=== PATIENT | male | born 1965 | race Caucasian/White ===

== ENCOUNTER → 2019-05-16 09:51 | Outpatient (BNVA) | payer MEDICARE, SELFPAY | PROVIDERS: Family Provider Nurse Practitioner Family; PCP Nurse Practitioner Family; Visit Provider Nurse Practitioner Psychiatric/Mental Health | DX: F33.2 Major depressive disorder, recurrent severe without psychotic features (principal); F41.1 Generalized anxiety disorder; F17.210 Nicotine dependence, cigarettes, uncomplicated | CPT/HCPCS: 99214 ==

== ENCOUNTER → 2019-05-18 14:03 | Outpatient (BNVA) | payer MEDICARE, SELFPAY | PROVIDERS: Family Provider Nurse Practitioner Family; PCP Nurse Practitioner Family; Visit Provider Nurse Practitioner | DX: M54.5 Low back pain (principal); F17.210 Nicotine dependence, cigarettes, uncomplicated; Z79.891 Long term (current) use of opiate analgesic | CPT/HCPCS: 99213 ==

== ENCOUNTER 2019-06-13 11:28 | Emergency (ER) | payer MEDICARE, SELFPAY ==
[2019-06-13 11:29] VITALS: BP 128/93; PULSE 88; RESP 18; O2SAT 96; BMI 25.5
--- NOTE | 2019-06-13 11:29 | ED_ITS ---
Entered by Anushka Franklin, acting as scribe for Ciara Call HPI - Extremity Injury (Lower) General: Chief Complaint: Extremity Injury, Lower Stated Complaint: Lt toe pain Time Seen by Provider: 06/13/19 11:29 Source: patient and RN notes reviewed Mode of arrival: ambulatory Limitations: no limitations History of Present Illness: HPI Narrative: 54 yo male presents to ED with complaints of an injury to his L second toe. 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 He said the grinder set up operator universal is approximately 20 pounds and it fell about 4 feet. MD complaint: foot injury (L second toe) Onset (ago): day(s) (1) Injury: Left: toes (second toe) Type of Injury: blunt Place: home Severity: severe Relieving factors: nothing Exacerbating factors: weight bearing, movement and palpation Context: direct blow Associated symptoms: Reports swelling Other symptoms: none Treatments prior to arrival: NSAIDS Review of Systems General: Reports: other (negative unless marked) Const: Denies: fever, chills, body aches, fatigue, malaise or diaphoresis Eyes: Denies: change in vision or blurry vision ENMT: Denies: throat pain, painful swallowing, hoarseness, ear pain, ear discharge, Change in hearing or nasal discharge Card: Denies: chest pain, palpitations, irregular heart rhythm, syncope, pre- syncope, shortness of breath on exertion or shortness of breath when lying down Resp: Denies: shortness of breath, productive cough, non-productive cough, wheezing, coughing up blood or chest congestion GI: Denies: abdominal pain, nausea, vomiting, vomiting blood, coffee grounds in vomit, diarrhea, constipation, cramping, blood in stool or black tarry stool : Denies: flank pain, difficulty urinating, painful urination, urinary frequency, urinary urgency, decreased urine ouput, urinary incontinence or blood in urine Musc: Denies: neck pain, back pain, joint warmth or joint stiffness Skin/Breast: Denies: rash, skin tenderness or yellow skin Neuro: Denies: headache, numbness in extremities, weakness in extremities, changes in sensation, lack of coordination, difficulty walking, dizziness, vertigo or confusion Endo: Denies: excessive thirst, tired all the time, cold intolerance, excessive sweating, flushing or hot flashes Deejay/Lymph: Denies: easy bruising, easy bleeding, petechiae or enlarged lymph nodes All/Imm: Denies: hives, throat swelling, tongue swelling, facial swelling or acute wheezing PFSH ED PFSH: Surgical History (Updated 05/18/19 @ 15:10 by MICHAEL Hopson) Hx of knee surgery RT KNEE SURGERY ? Arthroscopy Right knee Social History (Updated 06/13/19 @ 10:31 by SILVINO Guardado) Smoking and tobacco status: current every day smoker cigarettes Packs smoked per day: 0.5 Quit status (tobacco): has tried quititng Second hand smoke exposure: No Smoking risk assessment/counseling performed?: Yes Alcohol intake: never Desire information about alcohol rehabilitation?: No Counseling given: No History of recent travel: No Physical Exam Const: COMMON NORMALS: no apparent distress, oriented x3, no limitations, healthy appearing and well nourished EXAM LIMITATIONS: no altered mental status GENERAL APPEARANCE: cooperative, well kempt and well developed ORIENTATION/CONSCIOUSNESS: Yes awake HENMT: COMMON NORMALS: normocephalic, head/scalp atraumatic, hearing grossly normal bilaterally, external ears normal, EAC's normal, external nose normal and moist oral mucous membranes HEAD & SCALP: normal to inspection, normocephalic and atraumatic FACE & SINUS: normal facial exam and face symmetric NOSE: external nose normal and nares normal EXTERNAL EAR: Yes external ears normal EXTERNAL AUDITORY CANAL: EAC's normal MOUTH: oral and palatal mucosa normal and tongue normal Eye: COMMON NORMALS: PERRL, EOMs intact bilaterally, conjunctivae normal and no scleral icterus GENERAL EYE: normal appearance of both eyes and normal light reflex CONJUNCTIVA: Yes conjunctivae normal SCLERA: sclerae normal CORNEA: Yes corneas normal PUPIL: Yes PERRL DIRECT OPHTHALMOSCOPY: Yes normal light reflex Neck/C-Spine: COMMON NORMALS: full ROM, no lymphadenopathy, supple, no meningeal signs and no JVD GENERAL: Yes normal visual inspection and Yes trachea midline CERVICAL SPINE: Yes cervical ROM normal Chest: COMMONS NORMALS: inspection of chest normal and palpation of chest normal Resp: COMMON NORMALS: normal respiratory effort, no retractions, no use of accessory muscles and clear to auscultation bilaterally EFFORT & INSPECTION: Yes able to speak in complete sentences AUSCULTATION: clear to auscultation bilaterally Cardio: COMMON NORMALS: no JVD, regular rate, regular rhythm, S1 normal heart sound, S2 normal heart sound, no gallops, no clicks, no murmurs and no rub JUGULAR VENOUS DISTENTION: no JVD RATE: regular rate RHYTHM: regular rhythm HEART SOUNDS: S1 normal and S2 normal GI: COMMON NORMALS: soft to palpation, non-tender, no hepatosplenomegaly and no masses INSPECTION: Yes normal to inspection PALPATION: Yes soft and Yes no hepatosplenomegaly : COMMON NORMALS: Yes no CVA tenderness BLADDER/KIDNEY EXAM: Yes no CVA tenderness Back/Pelvis: COMMON NORMALS: no CVA tenderness, thoracic and lumbar spine normal to inspection, no thoracic nor lumbar tenderness and thoraco-lumbar ROM normal Extremity: COMMON NORMALS: normal to inspection, full ROM, normal capillary refill, no joint enlargement, no clubbing, cyanosis or edema and no calf tenderness OTHER: Right second toe with contusion noted. Neurovascular intact distal. Neuro: COMMON NORMALS: oriented x3, CN's II-XII intact bilaterally, moves all extremities, no focal motor deficits and no sensory deficits noted MENINGEAL SIGNS: Yes no meningeal signs Psych: COMMON NORMALS: mental status grossly normal, thought process normal, cooperative, affect normal, speech normal and activity/motor behavior normal APPEARANCE: Yes well kempt SPEECH: Yes normal speech THOUGHT PROCESS: normal thought process Skin: COMMON NORMALS: no rashes or lesions noted, skin turgor normal, no jaundice, no petechiae and no mottling GENERAL SKIN EXAM: no rashes or lesions noted and turgor normal Course Vital Signs: Vital signs: Vital Signs Pulse Rate 88 06/13/19 11:29 Respiratory Rate 18 06/13/19 11:29 Blood Pressure 128/93 06/13/19 11:29 Pulse Oximetry 96 06/13/19 11:29 MDM - Extremity Injury (Lower) MDM Narrative: Medical decision making narrative: Patient has no evidence of fracture on his x-ray. I will go and discharge him home with expectant care. He agrees to return if his symptoms worsen. I have notified him we will call him if radiology over reads his x-rays will have him return if necessary. Imaging Data^: Xray Ortho: My impression: Right foot -negative for fracture or dislocation. Discharge Plan Discharge Patient Disposition: Home, Self-Care Clinical Impression: Contusion of toe of right foot Qualifiers: Encounter type: initial encounter Toe: lesser toe Damage to nail status: without damage Qualified Code(s): S90.121A - Contusion of right lesser toe(s) without damage to nail, initial encounter Condition: Stable Prescriptions: No Action tizanidine 4 mg tablet 4 mg PO .one-half Q 6-8 hours PRN (Reason: Muscle Spasm) RF: 0 lisinopril 5 mg tablet 5 mg PO DAILY RF: 0 hydrocodone-acetaminophen 7.5-325 mg tablet 1 tab PO Q8H PRN (Reason: pain) 30 Days Qty: 90 RF: 0 hydrocodone-acetaminophen 7.5-325 mg tablet 1 tab PO TID 30 Days Qty: 90 RF: 0 buspirone 10 mg tablet 10 mg PO TID Qty: 90 RF: 3 trazodone 150 mg tablet 150 mg PO .bedtime PRN (Reason: sleep) Qty: 30 RF: 3 pramipexole [Mirapex] 0.125 mg tablet 0.375 mg PO DAILY 30 Days Qty: 90 RF: 2 paroxetine HCl [Paxil] 40 mg tablet 40 mg PO QAM 30 Days Qty: 30 RF: 5 hydroxyzine HCl 50 mg tablet 50 mg PO BID PRN (Reason: anxiety) Qty: 60 RF: 4 Discharge Orders: Discharge Order (Routine); Ordered 06/13/19 Ordered By: Ciara Call Referrals: Valeria Reynoso, DROP HAMMER SET UP OPERATOR [Primary Care Provider] - 1-3 days Discharge Diet: Advance as tolerated Discharge Activity: Increase activity as tolerated Patient Instructions: Contusion in Adults (ED) Activity Restrictions/Additional Instructions: Please return to the ER immediately for any of the signs or symptoms listed on your discharge instruction sheets, worsening/changing of your symptoms, you are not getting better as quickly as expected, or for ANY other cause or concerns. Coding Level of Care Code ED Oil And Gas Drafter for Dung Fwd The documentation recorded by the Noemi vargas Valerie R accurately reflects the service I personally performed and the decisions made by Jakub roach Eli N Jun 13, 2019 11:28
--- NOTE | 2019-06-13 11:31 | XR_ITS ---
WS: [id number] Right foot, 3 views, 06/13/2019 Clinical Data: INJURY/PAIN Comparison: None. Findings: No fractures or dislocations are seen. No bone destruction or erosion is noted. The joint spaces and soft tissues are normal. XR/XR foot RT min 3V* [id number] Impression: Negative right foot.
[2019-06-13 12:16] VITALS: PULSE 73; RESP 16; O2SAT 96
== END 2019-06-13 12:18 | disposition home or self-care (01) ==
PROVIDERS: Emergency Provider Emergency Medicine; Family Provider Nurse Practitioner Family; PCP Nurse Practitioner Family
DX: S90.121A Contusion of right lesser toe(s) without damage to nail, initial encounter (principal); F17.210 Nicotine dependence, cigarettes, uncomplicated; W22.8XXA Striking against or struck by other objects, initial encounter
CPT/HCPCS: 12345; 73630; 99281; 99282

== ENCOUNTER → 2019-06-27 07:39 | Outpatient (BNVA) | payer MEDICARE, SELFPAY | PROVIDERS: Family Provider Nurse Practitioner Family; PCP Nurse Practitioner Family; Visit Provider Nurse Practitioner Psychiatric/Mental Health | DX: F31.81 Bipolar II disorder (principal); F41.1 Generalized anxiety disorder; F17.210 Nicotine dependence, cigarettes, uncomplicated; F43.12 Post-traumatic stress disorder, chronic | CPT/HCPCS: 99214 ==

== ENCOUNTER → 2019-07-18 07:38 | Outpatient (BNVA) | payer MEDICARE, SELFPAY | PROVIDERS: Family Provider Nurse Practitioner Family; PCP Nurse Practitioner Family; Visit Provider Nurse Practitioner Psychiatric/Mental Health | DX: F33.2 Major depressive disorder, recurrent severe without psychotic features (principal); F41.1 Generalized anxiety disorder; F17.210 Nicotine dependence, cigarettes, uncomplicated | CPT/HCPCS: 99214 ==

== ENCOUNTER → 2019-08-03 12:02 | Outpatient (BNVA) | payer MEDICARE, SELFPAY | PROVIDERS: Family Provider Nurse Practitioner Family; Visit Provider Nurse Practitioner Family | DX: M54.5 Low back pain (principal); E78.2 Mixed hyperlipidemia; I10 Essential (primary) hypertension; R53.83 Other fatigue; Z79.899 Other long term (current) drug therapy | CPT/HCPCS: 36415; 80053; 80061; 81001; 82306; 83036; 84443; 85025 ==

== ENCOUNTER → 2019-09-05 09:11 | Outpatient (BNVA) | payer MEDICARE, SELFPAY | PROVIDERS: Family Provider Nurse Practitioner Family; Visit Provider Podiatrist Foot & Ankle Surgery | DX: S99.911A Unspecified injury of right ankle, initial encounter (principal); M77.31 Calcaneal spur, right foot; X58.XXXA Exposure to other specified factors, initial encounter | CPT/HCPCS: 73600; 73610 ==

== ENCOUNTER 2019-09-05 13:41 | Outpatient (CLI) | payer MEDICARE, SELFPAY | END 2019-09-05 13:42 | disposition home or self-care (01) | LOC: SPT 13:42 | PROVIDERS: Family Provider Nurse Practitioner Family; Visit Provider Podiatrist Foot & Ankle Surgery | DX: Z46.89 Encounter for fitting and adjustment of other specified devices (principal); S82.891D Other fracture of right lower leg, subsequent encounter for closed fracture with routine healing; X58.XXXD Exposure to other specified factors, subsequent encounter; S99.911A Unspecified injury of right ankle, initial encounter; M77.31 Calcaneal spur, right foot; X58.XXXA Exposure to other specified factors, initial encounter | CPT/HCPCS: 73600; 73610; 97760; L4361 ==

== ENCOUNTER → 2019-09-12 07:34 | Outpatient (BNVA) | payer MEDICARE, SELFPAY | PROVIDERS: Family Provider Nurse Practitioner Family; Visit Provider Nurse Practitioner Psychiatric/Mental Health | DX: F33.2 Major depressive disorder, recurrent severe without psychotic features (principal); F41.1 Generalized anxiety disorder; F17.210 Nicotine dependence, cigarettes, uncomplicated | CPT/HCPCS: 99214 ==

== ENCOUNTER → 2019-09-25 15:53 | Outpatient (BNVA) | payer MEDICARE, SELFPAY | PROVIDERS: Family Provider Nurse Practitioner Family; Visit Provider Podiatrist Foot & Ankle Surgery | DX: S82.891A Other fracture of right lower leg, initial encounter for closed fracture (principal); W03.XXXA Other fall on same level due to collision with another person, initial encounter | CPT/HCPCS: 73610; 73630 ==

== ENCOUNTER 2019-09-25 16:31 | Outpatient (CLI) | payer MEDICARE, SELFPAY | END 2019-09-25 16:32 | disposition home or self-care (01) | LOC: SPT 16:31 | PROVIDERS: Family Provider Nurse Practitioner Family; Visit Provider Podiatrist Foot & Ankle Surgery | DX: Z46.89 Encounter for fitting and adjustment of other specified devices (principal); S82.891D Other fracture of right lower leg, subsequent encounter for closed fracture with routine healing; X58.XXXD Exposure to other specified factors, subsequent encounter | CPT/HCPCS: 73610; 97760; L1902 ==

== ENCOUNTER → 2019-10-15 07:23 | Outpatient (BNVA) | payer MEDICARE, SELFPAY | PROVIDERS: Family Provider Nurse Practitioner Family; Visit Provider Nurse Practitioner Psychiatric/Mental Health | DX: F33.2 Major depressive disorder, recurrent severe without psychotic features (principal); F41.1 Generalized anxiety disorder; F17.210 Nicotine dependence, cigarettes, uncomplicated; F43.12 Post-traumatic stress disorder, chronic | CPT/HCPCS: 99214 ==

== ENCOUNTER → 2019-11-06 07:41 | Outpatient (BNVA) | payer MEDICARE, SELFPAY | PROVIDERS: Family Provider Nurse Practitioner Family; Visit Provider Nurse Practitioner Psychiatric/Mental Health | DX: F33.2 Major depressive disorder, recurrent severe without psychotic features (principal); F41.1 Generalized anxiety disorder; F17.210 Nicotine dependence, cigarettes, uncomplicated | CPT/HCPCS: 99214 ==

== ENCOUNTER → 2019-12-05 07:53 | Outpatient (BNVA) | payer MEDICARE, SELFPAY | PROVIDERS: Family Provider Nurse Practitioner Family; Visit Provider Nurse Practitioner Psychiatric/Mental Health | DX: F33.2 Major depressive disorder, recurrent severe without psychotic features (principal); F41.1 Generalized anxiety disorder; F17.210 Nicotine dependence, cigarettes, uncomplicated | CPT/HCPCS: 99214 ==

== ENCOUNTER → 2020-05-26 12:16 | Outpatient (BNVA) | payer MEDICARE, SELFPAY | PROVIDERS: Family Provider Nurse Practitioner Family; Visit Provider Nurse Practitioner Family | DX: R07.9 Chest pain, unspecified (principal); R06.02 Shortness of breath; K21.9 Gastro-esophageal reflux disease without esophagitis | CPT/HCPCS: 71046 ==

== ENCOUNTER → 2020-07-22 11:07 | Outpatient (BNVA) | payer MEDICARE, SELFPAY | PROVIDERS: Family Provider Nurse Practitioner Family; PCP Nurse Practitioner Family; Visit Provider Nurse Practitioner Family | DX: I10 Essential (primary) hypertension (principal); R06.02 Shortness of breath; E78.2 Mixed hyperlipidemia; E55.9 Vitamin D deficiency, unspecified; Z79.899 Other long term (current) drug therapy; K21.9 Gastro-esophageal reflux disease without esophagitis; G25.81 Restless legs syndrome; M54.5 Low back pain; Z12.5 Encounter for screening for malignant neoplasm of prostate; Z12.11 Encounter for screening for malignant neoplasm of colon | CPT/HCPCS: 80053; 80061; 81003; 82306; 83036; 84443; 85025; G0103 ==

== ENCOUNTER → 2020-07-25 07:56 | Outpatient (BNVA) | payer MEDICARE, SELFPAY | PROVIDERS: Family Provider Nurse Practitioner Family; PCP Nurse Practitioner Family; Visit Provider Nurse Practitioner Family | DX: E53.8 Deficiency of other specified B group vitamins (principal) | CPT/HCPCS: 82607; 83921 ==

== ENCOUNTER → 2020-08-08 14:38 | Outpatient (BNVA) | payer MEDICARE, SELFPAY | PROVIDERS: Family Provider Nurse Practitioner Family; PCP Nurse Practitioner Family; Visit Provider Internal Medicine | DX: Z20.822 Contact with and (suspected) exposure to COVID-19 (principal) | CPT/HCPCS: 87635 ==

== ENCOUNTER 2020-08-15 08:39 | Day surgery (SDC) | payer MEDICARE, SELFPAY ==
[2020-08-14 12:03] VITALS: BMI 24.6
--- NOTE | 2020-08-15 09:02 | ANES.PREANE2 ---
Pre-Anesthetic Assessment Pre-Anesthetic Assessment: Height/Weight: Height 1.75 m Weight 75.75 kg Preop Diagnosis: screen Proposed Procedure: Operation Date: 08/15/20 09:45 Proposed Procedures p Colonoscopy G0121 Z12.11(Not Applicable) - Rich Estrada MD Familial anesthetic complications: None Was Beta Thiago taken within 24 hours: N/A Was Clonidine taken within 24 hours: N/A Last intake: > 8 hrs Social: Social History: Tobacco and No alcohol Exam: Pre-Anes Outpt Exam: alert, oriented x 3, clear to auscultation bilaterally and regular rate & rhythm Airway: Cervical ROM: WNL MP: 3 Dentition: Other (missing, poor dentition, miscolored) CV/HEM: CV/HEM: HTN Comments: chest pain listed under problems was due to excessive coughing - no longer having any cough or chest pain after given inhalers GI: GI: GERD Metabolic: Metabolic: Hyperlipidemia Anesthetic Plan: ASA status: 2 Anesthesia: MAC Risk of > 500 ml blood loss (7ml/kg in children): No PFSH Anesthesia PFSH: Medical History Anxiety Arthritis of knee Bilateral chronic knee pain Chest pain Chronic pain syndrome Colon cancer screening Encounter for long-term opiate analgesic use Essential hypertension Generalized anxiety disorder GERD (gastroesophageal reflux disease) Low back pain of over 3 months duration Major depressive disorder Major depressive disorder, recurrent severe without psychotic features Medication management Mixed hyperlipidemia Nicotine dependence, cigarettes, uncomplicated Opioid contract exists Prostate cancer screening Restless leg syndrome Shortness of breath Sleep difficulties Vitamin D deficiency Vitamin D deficiency Surgical History Hx of knee surgery RT KNEE SURGERY ? Arthroscopy Right knee Family History Family/Other Heart disease Social History Smoking and tobacco status: current every day smoker cigarettes Packs smoked per day: 0.5 Quit status (tobacco): has tried quititng Second hand smoke exposure: No Smoking risk assessment/counseling performed?: Yes Alcohol intake: never Desire information about alcohol rehabilitation?: No Counseling given: No History of recent travel: No Data Anesthesia Cardiac Studies: No Data to Display
[2020-08-15 09:41] VITALS: BP 117/95; PULSE 77; RESP 18; TEMP 36.4; O2SAT 98
[2020-08-15] MEDS: sodium chloride 0.9% 1,000 ML 30 ML IV (09:50)
--- NOTE | 2020-08-15 13:14 | ANE.PACU2 ---
Inpatient post-anesthesia follow up: Airway intact: Yes Vital signs: Temperature 97.6 F Pulse Rate 77 Respiratory Rate 18 Blood Pressure 117/95 Pulse Oximetry 98 Oxygen Delivery Me thod Room Air Oxygen Flow Rate Fraction of Inspir ed Oxygen Hydration adequate: Yes Nausea and vomiting: No Pain level: 2 Mental status: Baseline
--- NOTE | 2020-08-16 11:16 | W.PM.OPSFHP ---
Same Day Surgery H&P Indication for Procedure/HPI DATE OF PROCEDURE: August 16, 2020 CHIEF COMPLAINT/INDICATIONFOR SURGICAL PROCEDURE: Screening PREOP DIAGNOSIS: screen PLANNED PROCEDRUE: Operation Date: 08/15/20 09:45 Proposed Procedures p Colonoscopy G0121 Z12.11(Not Applicable) - Rich Estrada MD Medications/Allergies* Home Medications Medication Instructions Recorded Confirmed Type losartan 25 mg PO DAILY 08/14/20 08/15/20 History pramipexole 0.125 mg PO DAILY 08/14/20 08/14/20 History tizanidine 4 mg PO QID PRN 08/14/20 08/14/20 History Allergies/Adverse Reactions Allergy/AdvReac Type Severity Reaction Status Date / Time No Known Allergies Allergy Verified 08/14/20 11:59 Pertinent History/Comorbid Conditions* Medical History (Updated 07/22/20 @ 11:06 by JUNE Martinez) Anxiety Arthritis of knee Bilateral chronic knee pain Chest pain Chronic pain syndrome Colon cancer screening Encounter for long-term opiate analgesic use Essential hypertension Generalized anxiety disorder GERD (gastroesophageal reflux disease) Low back pain of over 3 months duration Major depressive disorder Major depressive disorder, recurrent severe without psychotic features Medication management Mixed hyperlipidemia Nicotine dependence, cigarettes, uncomplicated Opioid contract exists Prostate cancer screening Restless leg syndrome Shortness of breath Sleep difficulties Vitamin D deficiency Vitamin D deficiency Surgical History (Updated 05/18/19 @ 15:10 by MICHAEL Hopson) Hx of knee surgery RT KNEE SURGERY ? Arthroscopy Right knee Family History (Updated 05/17/19 @ 17:38 by SILVINO Johnson) Heart disease Family/Other Social History Smoking and tobacco status: current every day smoker cigarettes Packs smoked per day: 0.5 Quit status (tobacco): has tried quititng Second hand smoke exposure: No Smoking risk assessment/counseling performed?: Yes Alcohol intake: never Desire information about alcohol rehabilitation?: No Counseling given: No History of recent travel: No Pertinent Exam Findings alert, oriented x 3, clear to auscultation bilaterally, regular rate & rhythm, operative site marked and procedure specific exam findings Recommendations Surgery/Procedure today Coding Level of Care Code Acute Construction Inspector for Dung Hylton
== END 2020-08-15 11:00 | disposition home or self-care (01) ==
PROVIDERS: PCP Nurse Practitioner Family; Visit Provider Internal Medicine
PROC: 0DJD8ZZ Inspection of Lower Intestinal Tract, Via Natural or Artificial Opening Endoscopic (ICD-10-PCS; CPT 45378; principal; 2020-08-15 09:45)
DX: Z12.11 Encounter for screening for malignant neoplasm of colon (principal); D12.3 Benign neoplasm of transverse colon; D12.5 Benign neoplasm of sigmoid colon; F41.9 Anxiety disorder, unspecified; M13.869 Other specified arthritis, unspecified knee; I10 Essential (primary) hypertension; K21.9 Gastro-esophageal reflux disease without esophagitis; F32.9 Major depressive disorder, single episode, unspecified; E78.2 Mixed hyperlipidemia; E55.9 Vitamin D deficiency, unspecified; F17.210 Nicotine dependence, cigarettes, uncomplicated
CPT/HCPCS: 45385; 88305; 96360; J2704; J7030

== ENCOUNTER → 2021-08-10 17:31 | Outpatient (BNVA) | payer MEDICARE, SELFPAY | PROVIDERS: PCP Nurse Practitioner Family; Visit Provider Family Medicine | DX: J44.9 Chronic obstructive pulmonary disease, unspecified (principal); K21.9 Gastro-esophageal reflux disease without esophagitis; Z12.5 Encounter for screening for malignant neoplasm of prostate; E55.9 Vitamin D deficiency, unspecified; E78.2 Mixed hyperlipidemia; I10 Essential (primary) hypertension; G25.81 Restless legs syndrome | CPT/HCPCS: 80053; 80061; 82306; 84443; 85025; G0103 ==

== ENCOUNTER → 2023-10-14 09:00 | Outpatient (BNVA) | payer MEDICARE, SELFPAY | PROVIDERS: PCP Family Medicine; Visit Provider Family Medicine | DX: I10 Essential (primary) hypertension (principal); E78.2 Mixed hyperlipidemia; F41.1 Generalized anxiety disorder | CPT/HCPCS: 80053; 80061; 84443; 85025 ==

== ENCOUNTER → 2024-03-29 11:28 | Outpatient (BNVA) | payer MEDICARE, SELFPAY | PROVIDERS: PCP Nurse Practitioner Family; Visit Provider Nurse Practitioner Family | DX: Z12.5 Encounter for screening for malignant neoplasm of prostate (principal); I10 Essential (primary) hypertension; E78.2 Mixed hyperlipidemia | CPT/HCPCS: 80053; 80061; G0103 ==

== ENCOUNTER → 2024-04-30 08:47 | Outpatient (BNVA) | payer MEDICARE, SELFPAY | PROVIDERS: PCP Nurse Practitioner Family; Referring Provider Nurse Practitioner Family; Visit Provider Surgery | DX: K62.5 Hemorrhage of anus and rectum (principal); Z86.0100 Personal history of colon polyps, unspecified | CPT/HCPCS: 99204 ==

== ENCOUNTER 2024-05-16 07:06 | Day surgery (SDC) | payer MEDICARE, SELFPAY ==
[2024-05-16 07:20] VITALS: BP 156/102; PULSE 90; RESP 18; TEMP 36.7; O2SAT 94; BMI 25.1
[2024-05-16] MEDS: sodium chloride 0.9% 500 ML 15 ML IV (07:26)
--- NOTE | 2024-05-16 07:31 | ANES.PREANE2 ---
Pre-Anesthetic Assessment Height/Weight: Height 1.75 m Weight 77.111 kg Temp Pulse Resp BP Pulse Ox O2 Del Method 98.0 F 90 18 156/102 94 Room Air 05/16/24 07:20 05/16/24 07:20 05/16/24 07:20 05/16/24 07:20 05/16/24 07:20 05/16/24 07:20 Preop Diagnosis: bleeding per rectum Operation Date: 05/16/24 08:00 Proposed Procedures p Colonoscopy 43770, G0105,K62.5(Not Applicable) - Juan Elliott DO Familial anesthetic complications: none Was Beta Thiago taken within 24 hours: N/A Was Clonidine taken within 24 hours: N/A Last intake: Intake Last Liquid Date 05/15/24 Last Liquid Time 23:30 Last Solid Date 05/14/24 Last Solid Time 13:00 Social Tobacco and No alcohol Exam alert, oriented x 3, clear to auscultation bilaterally and regular rate & rhythm Airway Submandibular: within normal limits Cervical ROM: within normal limits Mallampati: Class II Dentition: other Comments: Comments: a few molars missing Pulmonary Chronic Obstructive Pulmonary Disease CV/HEM Hypertension None reported Hepatic None reported GI None reported Metabolic Hyperlipidemia [facility] [place] None reported Neuropsych Depression Anesthetic Plan ASA status: 2 Anesthesia: MAC Medications/Allergies Home Medications ?Medication ?Instructions ?Recorded ?Confirmed ?Last Taken ?Type albuterol sulfate 90 mcg/actuation 2 puff inhalation QID PRN 03/29/24 05/14/24 05/16/24 05:00 Rx aerosol inhaler shortness of breath or wheezing #8.5 grams pravastatin 20 mg tablet 20 mg PO DAILY #30 tabs 03/29/24 05/14/24 05/15/24 Rx ropinirole 1 mg tablet 1 mg PO DAILY #30 tabs 03/29/24 05/14/24 05/15/24 Rx losartan 25 mg tablet 25 mg PO DAILY 05/07/24 05/14/24 05/15/24 History tizanidine 4 mg tablet 4 mg PO Q8H PRN Muscle Spasm 05/07/24 05/14/24 05/15/24 History Allergies Allergy/AdvReac Type Severity Reaction Status Date / Time No Known Allergies Allergy Verified 05/14/24 08:17 Current Medications Generic Name Dose Route Start Last Admin Trade Name Freq PRN Reason Stop Dose Admin Sodium Chloride 500 mls @ 15 mls/hr 05/15/24 13:39 05/16/24 07:26 Sodium Chloride 0.9% IV 05/16/24 13:38 15 mls/hr .Q24H PRN Administration COLONOSCOPY FLUIDS PFSH Anesthesia Medical History (Updated 04/30/24 @ 09:21 by Juan Elliott DO) History of colon polyps Arthritis of knee Prostate cancer screening Medication management Vitamin D deficiency GERD (gastroesophageal reflux disease) Chest pain Shortness of breath Mixed hyperlipidemia Essential hypertension Low back pain of over 3 months duration Encounter for long-term opiate analgesic use Opioid contract exists Nicotine dependence, cigarettes, uncomplicated Generalized anxiety disorder Major depressive disorder, recurrent severe without psychotic features Sleep difficulties Restless leg syndrome Anxiety Bilateral chronic knee pain Chronic pain syndrome Major depressive disorder Vitamin D deficiency Surgical History Hx of knee surgery RT KNEE SURGERY ? Arthroscopy Right knee Family History Family/Other Heart disease Social History Smoking and tobacco/nicotine status: current every day tobacco/nicotine user cigarettes Packs smoked per day: 0.5 Quit status (tobacco/nicotine): has tried quititng Second hand smoke exposure: No Alcohol intake: never Caregiver/support person: Yes (family/sister) Lives independently: No Household members: family service: No Current occupational status: unemployed Current gender identity: Male Special parvin needs: No Data Anesthesia Cardiac Studies: No Data to Display
--- NOTE | 2024-05-16 08:08 | W.PM.OPSUD ---
Surgery/Procedure H&P Update DATE OF PROCEDURE: May 16, 2024 DATE H&P PERFORMED: 04/30/24 H&P UPDATE INFORMATION: I have reviewed H&P completed within last 30 days, I have examined patient prior to procedure and No changes to prior documentation PREOP DIAGNOSIS: bleeding per rectum PLANNED PROCEDURE: Operation Date: 05/16/24 08:00 Proposed Procedures p Colonoscopy 79484, G0105,K62.5(Not Applicable) - Juan Elliott DO
[2024-05-16 08:31] VITALS: BP 122/80; PULSE 85; RESP 16; TEMP 36.1; O2SAT 97
[2024-05-16 08:51] VITALS: BP 131/84; PULSE 79; RESP 16; O2SAT 96
--- NOTE | 2024-05-16 09:00 | ANE.PACU2 ---
Inpatient post-anesthesia follow up: Airway intact: Yes Vital signs: Temperature 97 F Pulse Rate 79 Respiratory Rate 16 Blood Pressure 131/84 Pulse Oximetry 96 Oxygen Delivery Me thod Room Air Oxygen Flow Rate Fraction of Inspir ed Oxygen Hydration adequate: Yes Nausea and vomiting: No Pain level: 1 Mental status: Baseline
== END 2024-05-16 09:01 | disposition home or self-care (01) ==
PROVIDERS: PCP Nurse Practitioner Family; Visit Provider Surgery
PROC: 0DJD8ZZ Inspection of Lower Intestinal Tract, Via Natural or Artificial Opening Endoscopic (ICD-10-PCS; CPT 45378; principal; 2024-05-16 08:00)
DX: Z12.11 Encounter for screening for malignant neoplasm of colon (principal); D12.3 Benign neoplasm of transverse colon; K64.8 Other hemorrhoids; F32.A Depression, unspecified; K08.409 Partial loss of teeth, unspecified cause, unspecified class; J44.9 Chronic obstructive pulmonary disease, unspecified; I10 Essential (primary) hypertension; Z79.899 Other long term (current) drug therapy; K21.9 Gastro-esophageal reflux disease without esophagitis; E78.2 Mixed hyperlipidemia; G25.81 Restless legs syndrome; F41.1 Generalized anxiety disorder; F17.210 Nicotine dependence, cigarettes, uncomplicated; K62.5 Hemorrhage of anus and rectum; K63.5 Polyp of colon
CPT/HCPCS: 45385; 88305; J2704; J7040

== ENCOUNTER → 2024-06-05 11:40 | Outpatient (BNVA) | payer MEDICARE, SELFPAY | PROVIDERS: PCP Nurse Practitioner Family; Visit Provider Surgery | DX: Z09 Encounter for follow-up examination after completed treatment for conditions other than malignant neoplasm (principal) | CPT/HCPCS: 99213 ==

== ENCOUNTER → 2024-10-01 13:01 | Outpatient (BNVA) | payer MEDICARE, SELFPAY | PROVIDERS: PCP Nurse Practitioner Family; Visit Provider Nurse Practitioner Family | DX: I10 Essential (primary) hypertension (principal); F41.1 Generalized anxiety disorder | CPT/HCPCS: 80053; 80061; 84443; 85025 ==